=== PATIENT | female | born 1980 ===

== ENCOUNTER 2018-04-06 14:34 | Outpatient (CLI) | payer OTHER ==
[~2018-04-06 14:34] MED LIST: PRENATAL1 TAB
== END 2018-04-06 14:39 | disposition home or self-care (01) ==
LOC: SONOGRAMA 14:34
DX: O40.9XX0 Polyhydramnios, unspecified trimester, not applicable or unspecified (principal)

== ENCOUNTER 2018-04-11 07:45 | Inpatient (IN) | payer OTHER ==
[~2018-04-11] VITALS: Ht 160 cm; Wt 106.6 kg
== END 2018-04-17 11:18 | disposition home or self-care (01) | DRG 788 ==
LOC: O/R 04-14 06:49 → OB/GYN 04-14 07:45
PROVIDERS: ADMIT Specialist
PROC: 4A1HXCZ Monitoring of Products of Conception, Cardiac Rate, External Approach (ICD-10-PCS; 2018-04-14)
PROC: 4A033R1 Measurement of Arterial Saturation, Peripheral, Percutaneous Approach (ICD-10-PCS; 2018-04-14)
PROC: 10D00Z1 Extraction of Products of Conception, Low, Open Approach (ICD-10-PCS; principal; 2018-04-14 16:30)
DX: O40.3XX0 Polyhydramnios, third trimester, not applicable or unspecified (principal); O34.211 Maternal care for low transverse scar from previous cesarean delivery; O24.410 Gestational diabetes mellitus in pregnancy, diet controlled; O75.82 Onset (spontaneous) of labor after 37 completed weeks of gestation but before 39 completed weeks gestation, with delivery by (planned) cesarean section; Z3A.39 39 weeks gestation of pregnancy; Z37.0 Single live birth